=== PATIENT | female | born 1950 | race Caucasian/White ===

== ENCOUNTER 2023-09-26 07:35 | Outpatient (OUT) | payer MEDICARE, OTHER, SELFPAY ==
[2023-09-26 08:15] LABS: Basophils Percent Auto 0.3 % (0.2-2.0); Eosinophils Absolute Auto 0.1 10^3/uL (0.0-0.7); Eosinophils Percent Auto 1.2 % (0.9-7.0); Hematocrit 42.7 % (36.0-48.0); Hemoglobin 14.2 g/dL (12.0-16.0); Immature Granulocytes Abs Auto 0.02 10^3/uL (0.00-0.03); Immature Granulocytes Pct Auto 0.3 % (0.0-0.5); Lymphocytes Absolute Auto 2.5 10^3/uL (1.2-3.8); Lymphocytes Percent Auto 36.8 % (20.5-60.0); Mean Corpuscular HGB Conc 33.3 g/dL (29.9-35.2); Mean Corpuscular Hemoglobin 30.2 pg (26.7-34.0); Mean Corpuscular Volume 90.9 fL (81.0-99.0); Mean Platelet Volume 10.3 fL (9.5-13.5); Monocytes Absolute Auto 0.4 10^3/uL (0.3-0.8); Monocytes Percent Auto 6.4 % (1.7-12.0); Neutrophils Absolute Auto 3.7 10^3/uL (1.4-6.5); Platelet Count 256 10^3/uL (150-450); Red Cell Distribution Width 12.7 % (11.0-15.0); White Blood Count 6.7 10^3/uL (4.0-11.0)
[2023-09-26 09:39] LABS: Free T4 1.17 ng/dL (0.76-1.46)
[2023-09-26 09:41] LABS: Alanine Aminotransferase 26 U/L (14-59); Albumin Globulin Ratio 1.2; Albumin Level 3.8 g/dL (3.4-5.0); Alkaline Phosphatase 63 U/L (46-116); Anion Gap 12.5; Aspartate Amino Transferase 19 U/L (15-37); Bilirubin Total 0.6 mg/dL (0.2-1.0); Calcium 9.6 mg/dL (8.5-10.1); Carbon Dioxide 25.6 mmol/L (21.0-32.0); Chloride 106 mmol/L (98-107); Chol HDL Ratio 2.3; Cholesterol 163 mg/dL (<=200); Estimated GFR (African America >60 (>=60); Estimated GFR (Non-African Ame >60 (>=60); Globulin 3.1 g/dL; Glucose 90 mg/dL (74-106); HDL Cholesterol 71 mg/dL (40-60); Potassium 4.1 mmol/L (3.5-5.1); Sodium 140 mmol/L (136-145); Thyroid Stimulating Hormone 0.258 uIU/mL (0.358-3.740); Total Protein 6.9 g/dL (6.4-8.2); Triglycerides 57 mg/dL (<=150); VLDL CHOLESTEROL 11.4 mg/dL
[2023-09-26 10:18] LABS: BUN Creatinine Ratio 12.8
[2023-09-27 04:08] LABS: Triiodothyronine (T3) 129 ng/dL (71-180)
== END 2023-09-26 07:36 | disposition home or self-care (01) ==
LOC: LAB 07:41
PROVIDERS: PCP Internal Medicine; Visit Provider Internal Medicine
DX: E04.1 Nontoxic single thyroid nodule (principal); I10 Essential (primary) hypertension; E05.90 Thyrotoxicosis, unspecified without thyrotoxic crisis or storm; R19.7 Diarrhea, unspecified; K58.9 Irritable bowel syndrome, unspecified
CPT/HCPCS: 36415; 80053; 80061; 84439; 84443; 84480; 85025

== ENCOUNTER 2024-09-30 11:04 | Outpatient (OUT) | payer MEDICARE, OTHER, SELFPAY ==
--- OUTSIDE RECORDS SUMMARY | 2024-09-30 11:25 | XMS_ITS | CCD ---
Author Organization [facility] Care Team Providers Care Aerodynamic Consultant Name Role Phone Zan Sharma DO Primary Care Provider EDEN, DR WARREN Admitting Unavailable BALL, DR WARREN Attending Unavailable BALL, DR WARREN Primary Care Unavailable BALL, DR WARREN Consulting Unavailable BALL, DR WARREN Admitting Unavailable BALL, DR WARREN Attending Unavailable BALL, DR WARREN Primary Care Unavailable BALL, DR WARREN Consulting Unavailable BALL, DR WARREN Admitting Unavailable BALL, DR WARREN Attending Unavailable BALL, DR WARREN Primary Care Unavailable BALL, DR WARREN Consulting Unavailable BALL, DR WARREN Admitting Unavailable BALL, DR WARREN Attending Unavailable BALL, DR WARREN Primary Care Unavailable BALL, DR WARREN Consulting Unavailable Zan Sharma DO Primary Care Provider Zan Sharma Allergies Allergy Classification Reported Allergen(s) Allergy Type Date of Onset Reaction(s) Facility (7 sources) Codeine Drug Allergy 0 Vomiting [facility] (1 source) Codeine Drug Allergy 0 Unknown [employer] Other (1 source) patient allergy list reviewed by nurse or physicia Propensity to adverse reactions 9 Comment:Done [employer] Other Medications Current Medications Medication Drug Class(es) Dates Sig (Normalized) Sig (Original) amLODIPine 5 mg oral tablet (6 sources) Dihydropyridine Calcium Channel Marcia Start: 10-01-2023 take 1 tablet by mouth once daily Amlodipine Active 0 .ROUTE .COMPLEX 90 October 01, 2023 1:08pm Take 1 tablet by mouth once daily Start: 08-09-2023 End: 10-01-2023 take 5 mg by mouth once daily Amlodipine Discontinued 5 MG PO Daily August 09, 2023 12:00am October 01, 2023 1:08pm take 1 tablet by ericka th every twenty-four hours amLODIPine Besylate 5 MG 1 tablet Orally Once a day for 90 days Active benazepril hydrochloride 20 mg oral tablet (13 sources) Angiotensin Converting Enzyme Inhibitor Start: 10-01-2023 take 1 tablet by mouth once daily Benazepril Active 0 .ROUTE .COMPLEX October 01, 2023 1:08pm Take 1 tablet by mouth once daily Start: 11-19-2018 End: 10-01-2023 take 20 mg by mouth once daily Benazepril Discontinued 20 MG PO Daily August 09, 2023 12:00am October 01, 2023 1:08pm Comment on above: Take 1 tablet by ericka th once daily. Completed/Discontinued Medications Medication Drug Class(es) Dates Sig (Normalized) Sig (Original) calcium carbonate 1500 mg oral tablet (5 sources) Start: 01-25-2010 calcium carbonate(CALCIUM 600 600 MG (1,500 MG) TAB) Take one(1) tablet daily. 0 0 01/25/2010 Active Comment on above: Take one(1) tablet d aily. dicyclomine hydrochloride 10 mg oral capsule (3 sources) Anticholinergic Start: 02-01-2022 take 1 capsule by mouth three times daily as needed Dicyclomine HCl 10 MG 1 CAPSULE Orally Three times a day NEEDED for 30 day(s) Jan, Not-Taking LORazepam 0.5 mg oral tablet (9 sources) Benzodiazepine Start: 08-09-2023 End: 08-09-2023 take 0.5-1 tablets by mouth every eight hours as needed for anxiety Lorazepam Discontinued 0.5 MG PO Every 8 hours August 09, 2023 12:31pm August 09, 2023 3:51pm 1/2 - 1 tablet Orally every 8 hours as needed for anxiety Start: 08-16-2022 take 0.5-1 tablets b y mouth every eight hours as needed for anxiety LORazepam 0.5 MG 1/2 - 1 tablet Orally every 8 hours as needed for anxiety for 30 days Jul, Active multivitamins(MULTIPLE VITAMIN TAB) (5 sources) Start: 01-25-2010 multivitamins(MULTIPLE VITAMIN TAB) Take one(1) tablet daily. 0 0 01/25/2010 Active Comment on above: Take one(1) tablet d aily. Problems Active Problems Problem Classification Problem Date Documented Da te Episodic/Chronic Anxiety disorders (7 sources) Generalized anxiety disorder; Translations: [Generalized anxiety disorder] Chronic Essential hypertension (13 sources) Essential hypertension; Translations: [Essential (primary) hypertension] Onset: 11-19-2018 11-19-2018 Chronic Immunizations and screening for infectious disease (1 source) Vaccination given; Translations: [Encounter for immunization] Episodic Menopausal disorders (1 source) Primary ovarian failure; Translations: [Other primary ovarian failure] Onset: 12-11-2018 Chronic Miscellaneous mental health disorders (3 sources) Primary insomnia; Translations: [Primary insomnia] 09-25-2023 Chronic Other aftercare (2 sources) H/O: high risk medication; Translations: [Other correction (current) drug therapy] Episodic Other aftercare (1 source) Long-term current use of drug therapy; Translations: [Other watermaster (current) drug therapy] Episodic Other and unspecified benign neoplasm (2 sources) History of polyp of colon; Translations: [Personal history of colonic polyps] 05-02-2023 Episodic Other connective tissue disease (5 sources) History of repair of hip joint; Translations: [Presence of left artificial hip joint] Onset: 11-19-2018 11-19-2018 Chronic Other gastrointestinal disorders (2 sources) Irritable bowel syndrome; Translations: [Irritable bowel syndrome without diarrhea] 09-25-2023 Chronic Other gastrointestinal disorders (1 source) Irritable bowel syndrome without diarrhea; Translations: [Irritable bowel syndrome] 09-25-2023 Chronic Other gastrointestinal disorders (1 source) Diarrhea; Translations: [Diarrhea, unspecified] Episodic Other hereditary and degenerative nervous system conditions (5 sources) Restless legs; Translations: [Restless legs syndrome] Onset: 11-19-2018 11-19-2018 Chronic Other injuries and conditions due to external causes (1 source) History of fall; Translations: [History of falling] Episodic Other screening for suspected conditions (not mental disorders or infectious disease) (3 sources) Blood chemistry abnormal; Translations: [Other abnormal blood chemistry] Onset: 12-11-2018 05-02-2023 Episodic Prolapse of female genital organs (2 sources) Herniation of rectum into vagina; Translations: [Rectocele without mention of uterine prolapse] Onset: 07-18-2009 Chronic Residual codes; unclassified (1 source) Asymptomatic menopausal state Episodic Residual codes; unclassified (2 sources) Procedure and treatment not carried out because of patient's decision for unspecified reasons; Translations: [Surgical or other procedure not carried out because of patient's decision] Episodic Residual codes; unclassified (2 sources) Mammogram declined; Translations: [Procedure and treatment not carried out because of patient's decision for unspecified reasons] 09-25-2023 Episodic Residual codes; unclassified (2 sources) Family history of cancer of colon; Translations: [Family history of malignant neoplasm of digestive organs] 05-02-2023 Episodic Thyroid disorders (20 sources) Multinodular goiter; Translations: [Nontoxic multinodular goiter] Onset: 11-21-2018 11-21-2018 Chronic Past or Other Problems Problem Classification Problem Date Documented Da te Episodic/Chronic Gastrointestinal hemorrhage (1 source) Melena; Translations: [Melena] Onset: 12-11-2018 Episodic Genitourinary symptoms and ill-defined conditions (1 source) Finding of frequency of urination; Translations: [Frequency of micturition] Onset: 02-22-2017 Episodic Other aftercare (1 source) Surgical follow-up; Translations: [Surgery follow-up examination] Onset: 10-07-2009 Episodic Other gastrointestinal disorders (4 sources) Diarrhea, unspecified; Translations: [DIARRHEA UNSPECIFIED] Onset: 01-21-2022 Episodic Other injuries and conditions due to external causes (5 sources) H/O: hip fracture; Translations: [Personal history of (healed) traumatic fracture] Onset: 11-19-2018 11-19-2018 Episodic Results Test Name Value Interpretation Reference Range Facility T3, TOTAL (TRIIODOTHYRONINE) on 09-28-2022 T3, TOTAL 145 ng/dL Normal 71-180 [facility] Comment on above: Performed By: #### T 3TOTAL #### [facility] [address] [address] [address] Ralph Harry CBC AUTO DIFFon 09-27-2022 BASO # 0.0 103/ul Normal 0.0-0.1 [facility] Comment on above: Performed By: #### C BC #### [facility] [address] [address] [address] Ralph Harry Basophils/100 WBC (Bld) 0.3 % Normal 0.2-2.0 [facility] Comment on above: Performed By: #### C BC #### [facility] [address] [place] [address] Dr. Ralph Harry EO # 0.0 103/ul Normal 0.0-0.7 [facility] Comment on above: Performed By: #### C BC #### [facility] [address] [place] [address] Dr. Ralph Harry Eosinophils/100 WBC (Bld) 0.5 % Critically low 0.9-7.0 [facility] Comment on above: Performed By: #### C BC #### [facility] [address] [place] [address] Dr. Ralph Harry Erythrocyte distribution width (RBC) [Ratio] 12.6 % Normal 11.0-15.0 [facility] Comment on above: Performed By: #### C BC #### [facility] [address] [place] [address] Dr. Ralph Hrary Hematocrit (Bld) [Volume fraction] 45.8 % Normal 36.0-48.0 [facility] Comment on above: Performed By: #### C BC #### [facility] [address] [place] [address] Dr. Ralph Harry Hemoglobin (Bld) [Mass/Vol] 15.2 g/dL Normal 12.0-16.0 [facility] Comment on above: Performed By: #### C BC #### [facility] [address] [place] [address] Dr. Ralph Harry IG # 0.02 10e3/ul Normal 0.00-0.03 [facility] Comment on above: Performed By: #### C BC #### [facility] [address] [place] [address] Dr. Ralph Harry IG % 0.3 % Normal 0.0-0.5 [facility] Comment on above: Performed By: #### C BC #### [facility] [address] [place] [address] Dr. Ralph Harry LYMPH # 2.6 103/ul Normal 1.2-3.8 [facility] Comment on above: Performed By: #### C BC #### [facility] [address] [place] [address] Dr. Ralph Harry Lymphocytes/100 WBC (Bld) 33.0 % Normal 20.5-60.0 [facility] Comment on above: Performed By: #### C BC #### [facility] [address] [place] [address] Dr. Ralph Harry MANUAL DIFF REQ NO Normal [facility] Comment on above: Performed By: #### C BC #### [facility] [address] [place] [address] Dr. Ralph Harry MCH (RBC) [Entitic mass] 30.5 pg Normal 26.7-34.0 [facility] Comment on above: Performed By: #### C BC #### [facility] [address] [place] [address] Dr. Ralph Harry MCHC (RBC) [Mass/Vol] 33.2 g/dL Normal 29.9-35.2 [facility] Comment on above: Performed By: #### C BC #### [facility] [address] [place] [address] Dr. Ralph Harry MCV (RBC) [Entitic vol] 91.8 fL Normal 81.0-99.0 [facility] Comment on above: Performed By: #### C BC #### [facility] [address] [place] [address] Dr. Ralph Harry MONO # 0.5 103/ul Normal 0.3-0.8 [facility] Comment on above: Performed By: #### C BC #### [facility] [address] [place] [address] Dr. Ralph Harry Monocytes/100 WBC (Bld) 6.4 % Normal 1.7-12.0 [facility] Comment on above: Performed By: #### C BC #### [facility] [address] [place] [address] Dr. Ralph Harry NEUT # 4.7 103/ul Normal 1.4-6.5 [facility] Comment on above: Performed By: #### C BC #### [facility] [address] [place] [address] Dr. Ralph Harry Neutrophils/100 WBC (Bld) 59.5 % Normal 43.0-75.0 [facility] Comment on above: Performed By: #### C BC #### [facility] [address] [place] [address] Dr. Ralph Harry Platelet mean volume (Bld) [Entitic vol] 10.0 fL Normal 9.5-13.5 [facility] Comment on above: Performed By: #### C BC #### [facility] [address] [place] [address] Dr. Ralph Harry PLT 279 103/ul Normal 150-450 [facility] Comment on above: Performed By: #### C BC #### [facility] [address] [place] [address] Dr. Ralph Harry RBC 4.99 106/ul Normal 4.20-5.40 [facility] Comment on above: Performed By: #### C BC #### [facility] [address] [place] [address] Dr. Ralph Harry WBC 7.8 103/ul Normal 4.0-11.0 [facility] Comment on above: Performed By: #### C BC #### [facility] [address] [place] [address] Dr. Ralph Harry FREE T4on 09-27-2022 Free T4 [Mass/Vol] 1.16 ng/dL Normal 0.76-1.46 [facility] Comment on above: Performed By: #### F T4 #### [facility] [address] [place] [address] Dr. Ralph Harry PROF CHEM 8 (BAS METB)on Anion gap [Moles/Vol] 11.9 mmol/L Normal [facility] Comment on above: Performed By: #### T SH, BMP #### [facility] [address] [place] [address] Dr. Ralph Harry Calcium [Mass/Vol] 9.7 mg/dL Normal 8.5-10.1 [facility] Comment on above: Performed By: #### T SH, BMP #### [facility] [address] [address] [address] Ralph Harry Chloride [Moles/Vol] 105 mmol/L Normal 98-107 [facility] Comment on above: Performed By: #### T SH, BMP #### [facility] [address] [address] [address] Ralph Harry CO2 [Moles/Vol] 27.4 mmol/L Normal 21.0-32.0 [facility] Comment on above: Performed By: #### T SH, BMP #### [facility] [address] [address] [address] Ralph Harry Creatinine [Mass/Vol] 0.74 mg/dL Normal 0.55-1.02 [facility] Comment on above: Performed By: #### T SH, BMP #### [facility] [address] [address] [address] Ralph Harry EGFR-AF BAHAMIAN >60 Normal >=60 [facility] Comment on above: Performed By: #### T SH, BMP #### [facility] [address] [address] [address] Ralph Harry EGFR-NON AF BAHAMIAN >60 Normal >=60 [facility] Comment on above: Performed By: #### T SH, BMP #### [facility] [address] [address] [address] Ralph Harry Glucose [Mass/Vol] 102 mg/dL Normal 74-106 [facility] Comment on above: Performed By: #### T SH, BMP #### [facility] [address] [address] [address] Ralph Harry Potassium [Moles/Vol] 4.3 mmol/L Normal 3.5-5.1 [facility] Comment on above: Performed By: #### T SH, BMP #### [facility] [address] [address] [address] Ralph Harry Sodium [Moles/Vol] 140 mmol/L Normal 136-145 [facility] Comment on above: Performed By: #### T SH, BMP #### [facility] [address] [place] [address] Dr. Ralph Harry Urea nitrogen [Mass/Vol] 15.0 mg/dL Normal 7.0-18.0 [facility] Comment on above: Performed By: #### T SH, BMP #### [facility] [address] [place] [address] Dr. Ralph Harry Urea nitrogen/Creatinine [Mass ratio] 20.3 mg/mg Normal [facility] Comment on above: Performed By: #### T SH, BMP #### [facility] [address] [place] [address] Dr. Ralph Harry TSHon 09-27-2022 TSH 0.169 uIU/mL Critically low 0.358-3.740 [facility] Comment on above: Performed By: #### T SH, BMP #### [facility] [address] [place] [address] Dr. Ralph Harry GI PANEL (PCR)on 01-21-2022 Adenovirus F 40/41 Not detected Normal NOT DETECTED [facility] Comment on above: Performed By: #### G IPANEL #### [facility] [address] [place] [address] Dr. Ralph Harry Astrovirus Not detected Normal NOT DETECTED [facility] Comment on above: Performed By: #### G IPANEL #### [facility] [address] [place] [address] Dr. Ralph Harry C. Diff toxin A/B Not detected Normal NOT DETECTED [facility] Comment on above: Performed By: #### G IPANEL #### [facility] [address] [place] [address] Dr. Ralph Harry Campylobacter Not detected Normal NOT DETECTED [facility] Comment on above: Performed By: #### G IPANEL #### [facility] [address] [place] [address] Dr. Ralph Harry Cryptosporidium Not detected Normal NOT DETECTED [facility] Comment on above: Performed By: #### G IPANEL #### [facility] [address] [place] [address] Dr. Ralph Harry Cyclos. Cayetanensis Not detected Normal NOT DETECTED [facility] Comment on above: Performed By: #### G IPANEL #### [facility] [address] [place] [address] Dr. Ralph Harry E. Coli O157 Not Applicable Normal Not Applicable [facility] Comment on above: Performed By: #### G IPANEL #### [facility] [address] [place] [address] Dr. Ralph Harry E. histolytica Not detected Normal NOT DETECTED [facility] Comment on above: Performed By: #### G IPANEL #### [facility] [address] [place] [address] Dr. Ralph Harry EAEC Not detected Normal NOT DETECTED [facility] Comment on above: Performed By: #### G IPANEL #### [facility] [address] [place] [address] Dr. Ralph Harry EIEC Not detected Normal NOT DETECTED [facility] Comment on above: Performed By: #### G IPANEL #### [facility] [address] [place] [address] Dr. Ralph Harry EPEC Not detected Normal NOT DETECTED [facility] Comment on above: Performed By: #### G IPANEL #### [facility] [address] [place] [address] Dr. Ralph Harry ETEC Not detected Normal NOT DETECTED [facility] Comment on above: Performed By: #### G IPANEL #### [facility] [address] [place] [address] Dr. Ralph Harry G. Lamblia Not detected Normal NOT DETECTED [facility] Comment on above: Performed By: #### G IPANEL #### [facility] [address] [place] [address] Dr. Ralph GARCIAL CONTROLS PASSED Normal [facility] Comment on above: Performed By: #### G IPANEL #### [facility] [address] [place] [address] Dr. Ralph LAWRENCENL JUNIE HEADER GI PANEL BACTERIA Normal T [facility] Comment on above: Performed By: #### G IPANEL #### [facility] [address] [address] [address] Ralph BERMAN ECOLI GI PANEL DIARRHEAGEN IC E.COLI / SHIGELLA Normal [facility] Comment on above: Performed By: #### G IPANEL #### [facility] [address] [address] [address] Ralph BERMAN INFO SEE BELOW Normal [facility] Comment on above: Result Comment: EAEC - Enteroaggregative E. Coli EPEC- Enteropathogenic E. Coli ETEC- Enterotoxigenic E. Coli lt/st STEC- Shigella-like toxin-producing E. Coli stx1/stx2 EIEC- Shigella/Enteroinvasive E. Coli Performed By: #### G IPANEL #### [facility] [address] [place] [address] Dr. Ralph BERMAN PARASITES GI PANEL PARASITES Normal [facility] Comment on above: Performed By: #### G IPANEL #### [facility] [address] [place] [address] Dr. Ralph BERMAN VIRUS GI PANEL VIRUSES Normal [facility] Comment on above: Performed By: #### G IPANEL #### [facility] [address] [address] [address] Ralph Harry Norovirus GI/GII Not detected Normal NOT DETECTED [facility] Comment on above: Performed By: #### G IPANEL #### [facility] [address] [address] [address] Ralph Harry P. Shigelloides Not detected Normal NOT DETECTED [facility] Comment on above: Performed By: #### G IPANEL #### [facility] [address] [address] [address] Ralph Harry Rotavirus A Not detected Normal NOT DETECTED [facility] Comment on above: Performed By: #### G IPANEL #### [facility] [address] [place] [address] Dr. Ralph Harry Salmonella Not detected Normal NOT DETECTED [facility] Comment on above: Performed By: #### G IPANEL #### [facility] [address] [place] [address] Dr. Ralph Harry Sapovirus Not detected Normal NOT DETECTED [facility] Comment on above: Performed By: #### G IPANEL #### [facility] [address] [place] [address] Dr. Ralph Harry STEC Not detected Normal NOT DETECTED [facility] Comment on above: Performed By: #### G IPANEL #### [facility] [address] [place] [address] Dr. Ralph Harry Vibrio Not detected Normal NOT DETECTED [facility] Comment on above: Performed By: #### G IPANEL #### [facility] [address] [place] [address] Dr. Ralhp Harry Vibrio Cholera Not detected Normal NOT DETECTED [facility] Comment on above: Performed By: #### G IPANEL #### [facility] [address] [place] [address] Dr. Ralph Harry Y. Enterocolitica Not detected Normal NOT DETECTED [facility] Comment on above: Performed By: #### G IPANEL #### [facility] [address] [place] [address] Dr. Ralph Harry STOOL CULTUREon 01-20-2022 Campylobacter Culture NSTCUL [facility] Comment on above: Result Comment: Test not performed. No stool culture transport device received. Performed By: #### C XSTOOL #### [facility] [address] [place] [address] Dr. Ralph Harry E coli Shiga Toxin EIA NSTCUL Normal [facility] Comment on above: Result Comment: Test not performed. No stool culture transport device received. Performed By: #### C XSTOOL #### [facility] [address] [place] [address] Dr. Ralph Harry Salmonella/Shigella Screen NSTCUL [facility] Comment on above: Result Comment: Test not performed. No stool culture transport device received. Performed By: #### C XSTOOL #### [facility] [address] [place] [address] Dr. Ralph Harry CBC AUTO DIFFon 01-18-2022 BASO # 0.0 103/ul Normal 0.0-0.1 [facility] Comment on above: Performed By: #### C BC #### [facility] [address] [place] [address] Dr. Ralph Harry Basophils/100 WBC (Bld) 0.1 % Critically low 0.2-2.0 [facility] Comment on above: Performed By: #### C BC #### [facility] Laboratory [address] [place] [address] Dr. Ralph Harry EO # 0.0 103/ul Normal 0.0-0.7 [facility] Comment on above: Performed By: #### C BC #### [facility] Laboratory [address] [place] [address] Dr. Ralph Harry Eosinophils/100 WBC (Bld) 0.3 % Critically low 0.9-7.0 [facility] Comment on above: Performed By: #### C BC #### [facility] Laboratory [address] [place] [address] Dr. Ralph Harry Erythrocyte distribution width (RBC) [Ratio] 12.7 % Normal 11.0-15.0 [facility] Comment on above: Performed By: #### C BC #### [facility] [address] [place] [address] Dr. Ralph Harry Hematocrit (Bld) [Volume fraction] 45.8 % Normal 36.0-48.0 [facility] Comment on above: Performed By: #### C BC #### [facility] [address] [place] [address] Dr. Ralph Harry Hemoglobin (Bld) [Mass/Vol] 15.3 g/dL Normal 12.0-16.0 [facility] Comment on above: Performed By: #### C BC #### [facility] [address] [place] [address] Dr. Ralph Harry IG # 0.03 10e3/ul Normal 0.00-0.03 [facility] Comment on above: Performed By: #### C BC #### [facility] [address] [place] [address] Dr. Ralph Harry IG % 0.3 % Normal 0.0-0.5 [facility] Comment on above: Performed By: #### C BC #### [facility] [address] [place] [address] Dr. Ralph Harry LYMPH # 2.7 103/ul Normal 1.2-3.8 [facility] Comment on above: Performed By: #### C BC #### [facility] [address] [place] [address] Dr. Ralph Harry Lymphocytes/100 WBC (Bld) 28.8 % Normal 20.5-60.0 [facility] Comment on above: Performed By: #### C BC #### [facility] [address] [place] [address] Dr. Ralph Harry MANUAL DIFF REQ NO Normal [facility] Comment on above: Performed By: #### C BC #### [facility] [address] [place] [address] Dr. Ralph Harry MCH (RBC) [Entitic mass] 30.1 pg Normal 26.7-34.0 [facility] Comment on above: Performed By: #### C BC #### [facility] [address] [place] [address] Dr. Ralph Harry MCHC (RBC) [Mass/Vol] 33.4 g/dL Normal 29.9-35.2 [facility] Comment on above: Performed By: #### C BC #### [facility] [address] [place] [address] Dr. Ralph Harry MCV (RBC) [Entitic vol] 90.0 fL Normal 81.0-99.0 [facility] Comment on above: Performed By: #### C BC #### [facility] [address] [place] [address] Dr. Ralph Harry MONO # 0.5 103/ul Normal 0.3-0.8 [facility] Comment on above: Performed By: #### C BC #### [facility] [address] [place] [address] Dr. Ralph Harry Monocytes/100 WBC (Bld) 5.6 % Normal 1.7-12.0 [facility] Comment on above: Performed By: #### C BC #### [facility] [address] [place] [address] Dr. Ralph Harry NEUT # 6.1 103/ul Normal 1.4-6.5 [facility] Comment on above: Performed By: #### C BC #### [facility] [address] [place] [address] Dr. Ralph Harry Neutrophils/100 WBC (Bld) 64.9 % Normal 43.0-75.0 [facility] Comment on above: Performed By: #### C BC #### [facility] [address] [place] [address] Dr. Ralph Harry Platelet mean volume (Bld) [Entitic vol] 9.8 fL Normal 9.5-13.5 [facility] Comment on above: Performed By: #### C BC #### [facility] [address] [place] [address] Dr. Ralph Harry PLT 311 103/ul Normal 150-450 [facility] Comment on above: Performed By: #### C BC #### [facility] [address] [place] [address] Dr. Ralph Harry RBC 5.09 106/ul Normal 4.20-5.40 [facility] Comment on above: Performed By: #### C BC #### [facility] [address] [place] [address] Dr. Ralph Harry WBC 9.3 103/ul Normal 4.0-11.0 [facility] Comment on above: Performed By: #### C BC #### [facility] [address] [place] [address] Dr. Ralph Harry PROF 14(COMP METB)on 022 Albumin [Mass/Vol] 4.4 g/dL Normal 3.4-5.0 [facility] Comment on above: Performed By: #### C MP #### [facility] [address] [place] [address] Dr. Ralph Harry Albumin/Globulin [Mass ratio] 1.4 {ratio} Normal [facility] Comment on above: Performed By: #### C MP #### [facility] [address] [address] [address] Ralph Harry ALP [Catalytic activity/Vol] 68 U/L Normal 46-116 [facility] Comment on above: Performed By: #### C MP #### [facility] [address] [address] [address] Ralph Harry ALT [Catalytic activity/Vol] 25 U/L Normal 14-59 [facility] Comment on above: Performed By: #### C MP #### [facility] [address] [place] [address] Dr. Ralph Harry Anion gap [Moles/Vol] 14.2 mmol/L Normal [facility] Comment on above: Performed By: #### C MP #### [facility] [address] [place] [address] Dr. Ralph Harry AST [Catalytic activity/Vol] 23 U/L Normal 15-37 [facility] Comment on above: Performed By: #### C MP #### [facility] [address] [place] [address] Dr. Ralph Harry Bilirubin [Mass/Vol] 0.7 mg/dL Normal 0.2-1.0 [facility] Comment on above: Performed By: #### C MP #### [facility] [address] [place] [address] Dr. Ralph Harry Calcium [Mass/Vol] 10.1 mg/dL Normal 8.5-10.1 [facility] Comment on above: Performed By: #### C MP #### [facility] [address] [place] [address] Dr. Ralph Harry Chloride [Moles/Vol] 102 mmol/L Normal 98-107 [facility] Comment on above: Performed By: #### C MP #### [facility] [address] [place] [address] Dr. Ralph Harry CO2 [Moles/Vol] 26.8 mmol/L Normal 21.0-32.0 [facility] Comment on above: Performed By: #### C MP #### [facility] [address] [address] [address] Ralph Harry Creatinine [Mass/Vol] 0.87 mg/dL Normal 0.55-1.02 [facility] Comment on above: Performed By: #### C MP #### [facility] [address] [address] [address] Ralph Harry EGFR-AF BAHAMIAN >60 Normal >=60 [facility] Comment on above: Performed By: #### C MP #### [facility] [address] [address] [address] Ralph Harry EGFR-NON AF BAHAMIAN >60 Normal >=60 [facility] Comment on above: Performed By: #### C MP #### [facility] [address] [place] [address] Dr. Ralph Harry Globulin (S) [Mass/Vol] 3.2 g/dL Normal [facility] Comment on above: Performed By: #### C MP #### [facility] [address] [place] [address] Dr. Ralph Harry Glucose [Mass/Vol] 146 mg/dL Critically high 74-106 [facility] Comment on above: Performed By: #### C MP #### [facility] [address] [place] [address] Dr. Ralph Harry Potassium [Moles/Vol] 4.0 mmol/L Normal 3.5-5.1 [facility] Comment on above: Performed By: #### C MP #### [facility] [address] [address] [address] Ralph Harry Protein [Mass/Vol] 7.6 g/dL Normal 6.4-8.2 [facility] Comment on above: Performed By: #### C MP #### [facility] [address] [place] [address] Dr. Ralph Harry Sodium [Moles/Vol] 139 mmol/L Normal 136-145 [facility] Comment on above: Performed By: #### C MP #### [facility] [address] [place] [address] Dr. Ralph Harry Urea nitrogen [Mass/Vol] 10.0 mg/dL Normal 7.0-18.0 [facility] Comment on above: Performed By: #### C MP #### [facility] [address], [place] [address] Dr. Ralph Harry Urea nitrogen/Creatinine [Mass ratio] 11.5 mg/mg Normal [facility] Comment on above: Performed By: #### C MP #### [facility] [address], [place] [address] Dr. Ralph Harry US THYROID/PARATHYROIDon US THYROID/PARATHYROID * * *Final Report* * * DATE OF EXAM: Nov 08 2021 1:23PM [facility] 1048 - US THYROID/PARATHYROID / PROCEDURE REASON: Multiple thyroid nodules * * * * Physician Interpretation * * * * EXAMINATION: THYROID ULTRASOUND CLINICAL HISTORY: Multiple thyroid nodules TECHNIQUE: Sonography and Doppler imaging of the thyroid was performed. Images were obtained and stored in a permanent archive. MQ: UST_1 COMPARISON: 01/22/2020 RESULT: Right Lobe: 6.9 x 2.3 x 2.9 cm; homogeneous echogenicity, with multiple thyroid nodules. expected vascular flow. Left Lobe: 4.9 x 1.5 x 1.8 cm; homogeneous echogenicity, with multiple thyroid nodules. expected vascular flow. Isthmus: 0.4 cm The most suspicious thyroid nodule(s) (up to four) as below: NODULE 1: Location: Right upper pole Size: 1.3 cm Characteristics: Composition: Solid or almost completely solid, 2 points Echogenicity: Hypoechoic, 2 points Shape: Slvzl-myyv-myzd, 0 points Margin: Smooth, 0 points Echogenic foci (add points for all that apply): None, 0 points Internal vascularity: present Interval growth: Stable TI-RADS Category: TR4 ACR Recommendation: TI-RADS 4 nodule. Follow up imaging in 1, 2, 3 and 5 years is advised. NODULE 2: Location: Right mid Size: 1.6 cm Characteristics: Composition: Solid or almost completely solid, 2 points Echogenicity: Hypoechoic, 2 points Shape: Tibnw-yuxe-fssr, 0 points Margin: Smooth, 0 points Echogenic foci (add points for all that apply): Punctate echogenic foci, 3 points Internal vascularity: present Interval growth: Stable TI-RADS Category: TR5 ACR Recommendation: TI-RADS 5 nodule. FNA is advised. NODULE 3: Location: Right lower pole Size: 2.4 cm Characteristics: Composition: Mixed cystic and solid, 1 point Echogenicity: Hypoechoic, 2 points Shape: Mmkpv-eqra-uslm, 0 points Margin: Smooth, 0 points Echogenic foci (add points for all that apply): None, 0 points Internal vascularity: present Interval growth: Stable TI-RADS Category: TR3 ACR Recommendation: TI-RADS 3 nodule. Follow-up imaging at 1, 3 and 5 years is recommended. NODULE 4: Location: Left lower pole Size: 1.7 cm Characteristics: Composition: Solid or almost completely solid, 2 points Echogenicity: Hypoechoic, 2 points Shape: Nzaki-oalo-anbs, 0 points Margin: Smooth, 0 points Echogenic foci (add points for all that apply): Punctate echogenic foci, 3 points Internal vascularity: present Interval growth: Stable TI-RADS Category: TR5 ACR Recommendation: TI-RADS 5 nodule. FNA is advised. IMPRESSION: Unchanged multiple thyroid nodules. Mixing Machine Operator: SHELDON Transcribe Date/Time: Nov 09 2021 8:02A Dictated by : PHILLY NICHOLS MD This examination was interpreted and the report reviewed and electronically signed by: PHILLY NICHOLS MD on Nov 09 2021 8:07AM EST [id number] Normal [facility] 11-02-2021 CNPN Telephone (ENDTWN) CHRISTINE LANDIS ([id number]) 1950 F Date Time Provider Department 11/02/21 IAIN HENRY During your visit today, we recorded the following information about you: Iain Henry MD 11/02/2021 8:28 AM Signed Christine sent me an e-mail asking about the need for follow up of her thyroid issues. Please let her know that I am no longer able to communicate this way. She shared her recent thyroid function studies, which are stable compared to previous levels. So long as she feels well (not experiencing hyperthyroid symptoms - such as heat intolerance, heart palpitations, unexplained weight loss, anxiety, tremor, insomnia, frequent and/or loose bowel movements - then no specific intervention is needed in this regard). She also has multiple thyroid nodules. Her last ultrasound was Jan 2020. I recommend that she have an updated surveillance ultrasound now. Order placed. Please help her to schedule. Reach out via [email or web address] once this is done so we can decide how to proceed. Thanks, Iain Henry MD Endocrinology, Diabetes, AND Metabolism November 02, 2021 8:26 AM Jose Cruz Cabrera RN 11/02/2021 4:15 PM Signed Relayed message below. Guard Rail Installer please assist with thyroid US close to patients home. Thank you Brooke Mills 11/04/2021 12:23 PM Signed US Thyroid/parathyroid scheduled 11/08/2021. Patient made aware that communication with Dr Henry should be through My Chart so it is part of her medical record. Expressed understanding and will await results of US once available. Iain Henry MD 11/11/2021 3:25 PM Signed Fortunately, none of her thyroid nodules grew or changed significantly since the prior ultrasound was done (Jan 2020). I recommend that she have another study done in another ~2 years as such. Thanks, Iain Henry MD Endocrinology, Diabetes, AND Metabolism November 11, 2021 3:25 PM Jose Cruz Cabrera RN 11/14/2021 11:55 AM Signed Called and gave patient the messaage below. Canceled her follo wup to discuss US per patients request. Aware to get US in 2 years. Allergies As of Date: 11/02/2021 Noted Allergy Reaction CODEINE 01/25/2010 11 - Vomiting Comments: nausea Date Reviewed: 12/12/2018 Reviewed by: Shirley Deshpande (Rt) - Fully Assessed Reason for Visit: Follow up planning [Other] Primary Visit Diagnosis:Multiple thyroid nodules [E04.2] Order(s):US THYROID/PARATHYROID [[id number]] Order #: [id number] FUTURE Prescriptions as of 11/14/2021 - benazepril (LOTENSIN) 20 mg tablet Take 1 tablet by mouth once daily. - multivitamins(MULTIPLE VITAMIN TAB) Take one(1) tablet daily. - calcium carbonate(CALCIUM 600 600 MG (1,500 MG) TAB) Take one(1) tablet daily. 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 TECHNIQUE: 354.7 microcuries of I-123 sodium orally uptake and neck images in anterior-posterior and oblique views obtained at about 24 hours RESULT: The I-123 uptake is 38.8% at 24 hours ( normal 10-30% at 24 hours). There is heterogeneous uptake seen in both lobes of the thyroid. Focal area of increased uptake in the right lower pole, and smaller areas of relatively increased uptake in the right upper pole and left lower pole. Findings are suggestive toxic multinodular goiter in the setting of hyperthyroidism. The most dominant hyperfunctioning ( hot) area is in the right lower pole. IMPRESSION: 1. INCREASED I-123 UPTAKE VALUE. 2. SCAN: HETEROGENEOUS UPTAKE WITH FOCAL AREAS OF INCREASED UPTAKE DESCRIBED. IN THE SETTING OF HYPERTHYROIDISM THESE SCAN FINDINGS ARE SUGGESTIVE TOXIC MULTINODULAR GOITER. THE MOST DOMINANT HYPERFUNCTIONING (HOT) FOCUS IS IN THE RIGHT LOWER POLE. Mixing Machine Operator: PSCB Transcribe Date/Time: Dec 13 2018 12:12P Dictated by : ESPERANZA RODRIGUES MD This examination was interpreted and the report reviewed and electronically signed by: ESPERANZA RODRIGUES MD on Dec 13 2018 12:18PM EST [id number] [facility] PROGRESSon 12-12-2018 PROGRESS HNO ID: [id number] Author: Mildred Olson Service: Radiology Author Type: Metal Model Maker Type: Progress Notes Filed: 12/12/2018 11:46 AM Note Text: Radiology Service Progress Note PATIENT NAME: Christine Landis DATE OF SERVICE: December 12, 2018 TIME: 11:46 AM PATIENT IDENTITY VERIFICATION COMPLETED USING TWO (2) METHODS: Patient confirmed name verbally and Date of . PATIENT GENDER DATA: Female. status: : No status: NO. PATIENT RELEVANT IMPLANT DATA REVIEWED: Not Applicable RADIOLOGY DEPARTMENT: Ultrasound PERIPHERAL IV DATA: Not applicable Thyroid US done SIGNED BY: Mildred Olson, MARJORIE, RVT December 12, 2018 11:46 AM [facility] PROGRESS HNO ID: [id number] Author: Shirley Deshpande (Rt) Service: Radiology Author Type: Wool Washing Machine Operator Type: Progress Notes Filed: 12/12/2018 10:11 AM Note Text: RADIOLOGY SERVICE PROGRESS NOTE SERVICE DATE: 12/12/2018 SERVICE TIME: 10:10 AM PATIENT IDENTITY VERIFICATION COMPLETED USING TWO (2) METHODS: Patient confirmed name and Date of verbally. PATIENT GENDER DATA: .female : No status: No ALLERGIES: Reviewed and unchanged MEDICATIONS REVIEWED: Yes PATIENT RELEVANT IMPLANT DATA REVIEWED: Not Applicable CREATININE: Creatinine Date Value Ref Range Status 03/29/2010 0.65 (L) 0.70 - 1.40 mg/dL Final 03/28/2010 0.77 0.70 - 1.40 mg/dL Final eGFR-All Other Races Date Value Ref Range Status 03/29/2010 >60 . Final Comment: eGFR (Estimated GFR) Units of measure: mL/min/1.73 meters squared eGFR is derived from the reexpressed MDRD Study equation using the following parameters: serum creatinine, age, gender and race. The creatinine assay has been calibrated to be traceable to IDMS. An eGFR <60 mL/min/1.73m2 for >3 months is consistent with chronic kidney disease. Refer to KDOQI guidelines for clinical interpretation. eGFR- Date Value Ref Range Status 03/29/2010 >60 Final P.O.C.T. RESULTS: N/A December 12, [address] PERFORMED: No IV SITE: NM only - not applicable, oral or physician administered agents given to patient POST EXAM PIV STATUS: Not applicable PROCEDURE TYPE: NM I-123 24 hour only scan and uptake (tomorrow): 354.7 microcurries of Nal 123 capsules was administered orally at today. ADMINISTRATION TIME: 10:04 PATIENT DISCHARGED TO: Ambulatory patient, left OR department area. A Diagnostic radioactive procedure has taken place, with no further precautions necessary other than routine body substance precautions. More information regarding radiation safety can be found using this link: [email or web address] SIGNATURE: RT Charlee (N0, TURFGRASS MANAGEMENT PROFESSOR PATIENT NAME: Christine Landis DATE: December 12, 2018 TIME: 10:10 AM PAGER/CONTACT #: [facility] US THYROID/PARATHYROIDon US THYROID/PARATHYROID * * *Final Report* * * DATE OF EXAM: Dec 12 2018 12:30PM [facility] 1048 - US THYROID/PARATHYROID / PROCEDURE REASON: multiple diagnoses * * * * Physician Interpretation * * * * EXAMINATION: THYROID ULTRASOUND HISTORY: Subclinical hyperthyroidism with multiple thyroid nodules TECHNIQUE: Sonography and Doppler imaging of the thyroid was performed. Images were obtained and stored in a permanent archive. COMPARISON: None. RESULT: RIGHT LOBE: 6.6 x 2.1 x 2.7 cm; homogeneous echogenicity, expected vascular flow LEFT LOBE: 5.4 x 1.5 x 1.7 cm; homogeneous echogenicity, expected vascular flow ISTHMUS: 0.4 cm Nodules: The most suspicious thyroid nodules (up to 4) are detailed below: NODULE 1 Location: Right upper pole Size: 1.3x 0.7x 0.9 cm Characteristics: Composition: Solid or almost completely solid, 2 points Echogenicity: Hypoechoic, 2 points Shape: Oeljv-aasi-mvbz, 0 points Margin: Smooth, 0 points Echogenic foci (Add points for all that apply): Punctate echogenic foci, 3 points Internal vascularity: present Interval growth:No prior available for comparison Total points / TI-RADS Category: 7 TI-RADS 5 ACR Recommendation: TI-RADS 5 NODULE, FNA is advised. NODULE 2 Location: Right mid Size: 1.6x 0.8x 1.1 cm Characteristics: Composition: Mixed cystic and solid, 1 point Echogenicity: Hypoechoic, 2 points Shape: Wwvmb-epce-ewet, 0 points Margin: Smooth, 0 points Echogenic foci (Add points for all that apply): Punctate echogenic foci, 3 points Internal vascularity: present Interval growth:No prior available for comparison Total points / TI-RADS Category: 6 TI-RADS 4 ACR Recommendation: TI-RADS 4 NODULE FNA is recommended. NODULE 3 Location: Right lower pole Size: 1.9x 1.5x 2 cm Characteristics: Composition: Solid or almost completely solid, 2 points Echogenicity: Isoechoic, 1 point Shape: Eargb-hopl-tcsh, 0 points Margin: Smooth, 0 points Echogenic foci (Add points for all that apply): Punctate echogenic foci, 3 points Internal vascularity: present Interval growth:No prior available for comparison Total points / TI-RADS Category: 6 TI-RADS 4 ACR Recommendation: TI-RADS 4 NODULE FNA is recommended. NODULE 4 Location: Left lower pole Size: 1.5x 0.8x 1.2 cm Characteristics: Composition: Solid or almost completely solid, 2 points Echogenicity: Hypoechoic, 2 points Shape: Acvrw-gxed-pygf, 0 points Margin: Smooth, 0 points Echogenic foci (Add points for all that apply): Punctate echogenic foci, 3 points Internal vascularity: present Interval growth:No prior available for comparison Total points / TI-RADS Category: 7 TI-RADS 5 ACR Recommendation: TI-RADS 5 NODULE, FNA is advised. IMPRESSION: THYROID NODULES PRESENT. ACR TI-RADS LEVEL AND RECOMMENDATIONS DETAILED IN BODY OF REPORT. Mixing Machine Operator: SHELDON Transcribe Date/Time: Dec 12 2018 1:25P Dictated by : MOISÉS HEARD MD This examination was interpreted and the report reviewed and electronically signed by: MOISÉS HEARD MD on Dec 12 2018 1:39PM EST [id number] [facility] Vital Signs Date Time Vital Sign Value Performing Clinician Facility 01-29-2024 13:40-0400 Body height 165.1 cm [facility] 01-29-2024 13:40-0400 Body mass index (BMI) [Ratio] 21.6 kg/m2 [facility] 01-29-2024 13:40-0400 Body weight 58.96 kg [facility] 09-25-2023 10:05-0400 Body height 165.1 cm [facility] 09-25-2023 10:05-0400 Body mass index (BMI) [Ratio] 23.3 kg/m2 [facility] 09-25-2023 10:05-0400 Body weight 63.61 kg [facility] 09-25-2023 10:05-0400 Diastolic blood pressure 78 mm[Hg] [facility] 09-25-2023 10:05-0400 Heart rate 101 /min [facility] 09-25-2023 10:05-0400 Respiratory rate 12 /min [facility] 09-25-2023 10:05-0400 Systolic blood pressure 142 mm[Hg] [facility] 09-27-2022 11:00-0400 Body height 165.1 cm Zan Ball Other [facility] [employer] Other 09-27-2022 11:00-0400 Body mass index (BMI) [Ratio] 23.49 kg/m2 Zan Ball Other [facility] [employer] Other 09-27-2022 11:00-0400 Body weight 64.05 kg Zan Ball Other [facility] [employer] Other 09-27-2022 11:00-0400 Diastolic blood pressure 82 mm[Hg] Azn Ball Other [facility] [employer] Other 09-27-2022 11:00-0400 Respiratory rate 12 /min Zan Sharma Other [employer] Other 09-27-2022 11:00-0400 Systolic blood pressure 145 mm[Hg] Zan Sharma Other [employer] Other Encounters Encounter Date Encounter Type Care Provider Facility Start: 01-29-2024 End: 01-29-2024 ambulatory [facility] Work Phone: Start: 01-29-2024 End: 01-29-2024 Patient encounter procedure [facility] Gastroenterology Work Phone: Start: 09-25-2023 End: 09-25-2023 ambulatory [facility] Work Phone: Start: 09-25-2023 End: 09-25-2023 Patient encounter procedure [facility] Work Phone: Start: 08-09-2023 Non-patient / Non-visit [facility] Phys[facility] [employer] Work Phone: Start: 01-04-2023 End: 01-04-2023 ambulatory Zan Sharma Other [employer] Other Start: 01-04-2023 Telephone encounter Zan WALLER G [facility] Start: 09-27-2022 Patient encounter procedure Zan Sharma [facility] Start: 09-27-2022 End: 09-28-[address] ZAN SHARMA [facility] [employer] Other Start: 08-16-2022 End: 08-16-2022 ambulatory Zan Sharma Other [employer] Other Start: 08-16-2022 Telephone encounter Zan WALLER G [facility] Start: 01-30-2022 ambulatory Iain Henry MD Work Phone: Endocrinology Comment on above: F/U hyperthyroidism Start: 01-21-2022 End: 01-21-[address] ZAN SHARMA Facility:[facility]1 Start: 01-19-2022 End: 01-19-[address] ZAN SHARMA Facility:[facility] Start: 01-18-2022 End: 01-19-[address] ZAN SHARMA Facility:[facility] Start: 11-09-2021 ambulatory Iain Henry MD Work Phone: Endocrinology Comment on above: [place] Start: 11-08-2021 ambulatory Maryjane Ahuja RDMS Radiology Comment on above: Radiology [place] Start: 11-08-2021 Patient encounter procedure Maryjane Ahuja RDMS [facility] Start: 11-08-2021 End: 11-08-2021 Subsequent hospital visit by physician [facility] Comment on above: Multiple thyroid nod ules [E04.2] Start: 09-26-2021 Adult health examination Daquan Sharma Other [employer] Other Start: 01-22-2020 End: 01-22-2020 Subsequent hospital visit by physician [facility] Comment on above: Toxic multinodular g oiter [E05.20] Procedures Date Procedure Procedure Detail Performing Clinician Start: 11-08-2021 Us soft tissue head & neck real time imge carroll Henry MD Work Phone: Start: 01-22-2020 Us soft tissue head & neck real time imcristian Henry MD Work Phone: Start: 12-11-2018 Screening for malign ant neoplasm of colon Zan Sharma Other Start: 11-19-2018 H/O: surgery History of greg dder suspension procedure Maryjane Ahuja RDMS Depression screening Charles Sharma Other Plan of Treatment Date Care Activity Detail Author Start: 01-19-2023 Influenza vaccination INFLUENZA (#1) [facility] Start: 05-21-2022 ADVANCE DIRECTIVE DISCUSSION ADVANCE DIRECTIVE DISCUSSION [facility] Start: 05-21-2022 DEPRESSION ASSESSMENT DEPRESSION ASS ESSMENT [facility] Start: 02-01-2022 End: 04-03-2022 Thyrotropin [Units/volume] in Serum or Plasma TSH BLD Lab Routine Toxic multinodular goiter Expected: 02/01/2022, Expires: 04/03/2022 [facility] Work Phone: Comment on above: Expected: 02/01/2022 , Expires: 04/03/2022 Start: 02-01-2022 End: 04-03-2022 Thyroxine (T4) free [Mass/volume] in Serum or Plasma T4 FREE/FREE THYROX Lab Routine Toxic multinodular goiter Expected: 02/01/2022, Expires: 04/03/2022 [facility] Work Phone: Comment on above: Expected: 02/01/2022 , Expires: 04/03/2022 Start: 02-01-2022 End: 04-03-2022 Triiodothyronine (T3) Free [Mass/volume] in Serum or Plasma T3 FREE BLD Lab Routine Toxic multinodular goiter Expected: 02/01/2022, Expires: 04/03/2022 [facility] Work Phone: Comment on above: Expected: 02/01/2022 , Expires: 04/03/2022 Start: 01-19-2022 Influenza vaccination [facility] Start: 05-21-2021 ADVANCE DIRECTIVE DISCUSSION ADVANCE DIRECTIVE DISCUSSION [facility] Start: 2013 BONE DENSITY BONE DENSITY [facility] Start: 2013 PNEUMOCOCCAL: 65+ (1 - PCV) PNEUMOCOCCAL: 65+ (1 - PCV) [facility] Start: 03-29-2013 DIABETES SCREEN DIABETES SCREEN [facility] Start: 1998 SHINGRIX VACCINE (1 of 2) PEÑA GRIX VACCINE (1 of 2) [facility] Start: 1993 COLOGUARD (FIT-DNA) COLOGUARD (FIT-D NA) [facility] Start: 1993 Colonoscopy COLONOSCOPY [facility] Start: 1993 COLORECTAL CANCER SCREENING COLORECTAL CANCER SCREENING [facility] Start: [address] COLONOGRAPHY [facility] Start: 1993 FECAL OCCULT BLOOD FECAL OCCULT BLOO D [facility] Start: 1993 LIPID SCREEN LIPID SCREEN [facility] Start: 1993 SIGMOIDOSCOPY SIGMOIDOSCOPY [facility] Start: 1988 Mammography MAMMOGRAM [facility] Start: 1967 Urine microalbumin profile DTAP,TDAP ,TD (1 - Tdap) [facility] Start: 1966 ANNUAL PCP TEAM AUTOMOTIVE DISMANTLER LUCHO DISEASE VISIT ANNUAL PCP TEAM CHRONIC DISEASE VISIT [facility] Start: 1966 BP CONTROLLED (<130/80) BP CONTROLLE D (<130/80) [facility] Start: 1966 HEPATITIS C SCREENING HEPATITIS C SC REENING [facility] Start: 1960 Adult depression scr eening assessment DEPRESSION SCREENING [facility] Start: 1953 COVID-19 VACCINE (#1) COVID-19 VACCI NE (#1) [facility] Start: 1948 COVID-19 VACCINE (#1) COVID-19 VACCI NE (#1) [facility] Comprehensive metabo lic 2000 panel - Serum or Plasma [facility] Immunizations Immunization Date Immunization Notes Care Provider Fa cility 07-28-2020 COVID-19 mRNA-1273 (Moderna) [facility] 06-30-2020 COVID-19 mRNA-1273 (Moderna) [facility] 02-18-2020 influenza virus vaccine, split virus (incl. purified surface antigen) Zan Sharma Other [employer] Other 02-18-2020 influenza virus vaccine, unspecified formulation [facility] Payers Date Payer Category Payer Medicare MEDICARE MEDICAR E A AND B [id number] 2013-Present [phone] [place] [address] Medicare [id number] 2013 Medicare MEDICARE MEDICAR E A AND B [id number] 2013-Present [phone] [place] [address] Medicare [id number] 2013 Private Health Insurance RADU POP MEDICARE SUPPLEMENT [id number] 2013-Present [phone] [address] [place] [address] Indemnity [id number] 2013 Private Health Insurance RADU POP MEDICARE SUPPLEMENT [id number] 2013-Present [phone] [address] [place] [address] Indemnity [id number] 1959 Medicare [id number] 1959 Medicare [id number] 1948 Unknown [id number] 1948 Unknown [id number] 1948 Unknown [id number] 1948 Unknown [id number] Self-pay Self Pay [id number] Social History Date Type Detail Facility Start: 11-19-2018 Tobacco smoking status NHIS Ex-smoker [facility] History of tobacco use Cigarette Smoker [facility] Start: 12-02-2018 Alcohol intake Current drinker of alcohol (finding) [facility] Start: 12-02-2018 End: 04-25-2020 Alcohol intake [facility] Start: 11-19-2018 Tobacco Comment Quit: 2008; recently started again (but not for 10 days) [facility] Start: 1950 Sex Assigned At Female [facility] Start: 11-29-2019 End: 11-04-2021 Exposure to SARS-CoV-2 (event) Not sure [facility] Start: 02-02-2021 History of tobacco use Current smoker [facility] Work Phone: Start: 11-19-2018 Tobacco use and exposure Smokeless tobacco non-user [facility] Work Phone: Start: 12-02-2018 End: 04-25-2020 Sex Assigned At [employer] Other National Score (1-10 0), lower number is lower risk Not on file [facility] Start: 02-19-2020 Gender identity Identifies as female gender (finding) [facility] Start: 02-19-2020 Sexual orientation Heterosexual (finding) [facility] Medical Equipment Procedure Code Equipment Code Equipment Origin al Text Equipment Identifier Dates Mesh Gynemesh Ps [id number] - [id number] Start: 03-28-2010 Clinical Notes 11-08-2021 to 09-27-2022 Note Date & Type Note Facility 09-27-2022 Evaluation note Encounter Date Diagnosis Assessment Notes September, Primary hypertension (ICD-10 - I10) This patient is instructed to consume a healthy, low-fat, low-salt diet. They are also encouraged to continue exercise to achieve/maintain a normal BMI. September, MARY (generalized anxiety disorder) (ICD-10 - F41.1) Healthy diet, exercise September, Thyroid nodule (ICD-10 - E04.1) Continue qoy thyroid US Monitor for symptoms of thyrotoxicosis Yearly TSH, T4, T3 September, Menopause (ICD-10 - Z78.0) Healthy diet, weight bearing exercises, Ca/Vit D supplements September, Medicare annual wellness visit, subsequent (ICD-10 - Z00.00) Personalized health advice was given to the beneficiary including a written plan for screenings discussed and provided. Advanced care planning reviewed and/or information given as requested. Additional counseling was provided hehere today in regards to, [ ]. The above visit was performed by [ ], under direct supervision of [ ]. Document reviewed and amended by provider signed below. Healthy diet and exercise. Reviewed age-appropriate preventive testing recommended. September, Mammogram declined (ICD-10 - Z53.20) Discussed mammogram, which she declined. Encouraged to continue w/ SBE monthly and contact office w/ any changes [employer] Other 09-14-2022 Miscellaneous Notes* Telephone Encounter - Lena Deutsch APRN.CNP - 02/01/2022 9:26 AM EDT Lab orders signed on behalf of Dr. Henry: 1. 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 She has been having gastrointestinal issues and would like to know if it is related to her hyperthyroidism. Please advise. Thank you, Zehra Ley MA [facility] Miscellaneous Notes* Telephone Encounter - aRdha Johnson Ma - 11/09/2021 10:37 AM EDT AUTUMN: 02/23/2020 No follow up scheduled Patient had an ultrasound done and would like you to review it. Please advise. Radha Johnson Ma documented in this encounterTr[facility]22 NoteHNO ID: [id number] Author: Maryjane Ahuja RDMS Service: ? Author Type: Metal Model Maker Type: Progress Notes Filed: 11/08/2021 1:16 PM Note Text: Radiology Service Progress Note PATIENT NAME: Christine Landis DATE OF SERVICE: November 08, 2021 TIME: 12:53 PM PATIENT IDENTITY VERIFICATION COMPLETED USING TWO (2) IDENTIFIERS: Name and Date of confirmed by patient verbally. FALL SCREENING: Has the patient had 2 falls in the last year or 1 fall with injury or currently using an Ambulatory Assistive Device (Walker, Cane, Wheelchair, Crutches, etc.)? No PATIENT GENDER DATA: Female. status: : No status: N/A PATIENT RELEVANT IMPLANT DATA REVIEWED: Not Applicable RADIOLOGY DEPARTMENT: Ultrasound PERIPHERAL IV DATA: Not applicable SIGNED BY: Maryjane Ahuja RDMS November 08, 2021 12:53 [facility]06-21-2022 History of Present illness Narrative* Maryjane Ahuaj RDMS - 11/08/2021 12:53 PM EDT Radiology Service Progress Note PATIENT NAME: Christine Landis DATE OF SERVICE: November 08, 2021 TIME: 12:53 PM PATIENT IDENTITY VERIFICATION COMPLETED USING TWO (2) IDENTIFIERS: Name and Date of confirmedby patient verbally. FALL SCREENING: Has the patient had 2 falls in the last year or 1 fall with injury or currently using an Ambulatory Assistive Device (Walker, Cane, Wheelchair, Crutches, etc.)? No PATIENT GENDER DATA: Female. status: : No status: N/A PATIENT RELEVANT IMPLANT DATA REVIEWED: Not Applicable RADIOLOGY DEPARTMENT: Ultrasound PERIPHERAL IV DATA: Not applicable SIGNED BY: Maryjane Ahuja RDMS November 08, 2021 12:53 PM [facility]* Diagnosis Toxic multinodular goiter- Primary Toxic multinodular goiter without mention of thyrotoxic crisis or storm documented in this encounter [facility] noteNo [employer] Other Evaluation note* Diagnosis Multiple thyroid nodules Nontoxic multinodular goiter documented in this encounter [facility] note* Diagnosis Toxic multinodular goiter Toxic multinodular goiter without mention of thyrotoxic crisis or storm Multiple thyroid nodules Nontoxic multinodular goiter documented in this encounter [facility] note* Diagnosis Onset Date Resolution Status MARY (generalized anxiety disorder) acute Hypertension acute IBS (irritable bowel syndrome) acute Primary insomnia acute Screening mammography declined acute Subclinical hyperthyroidism acute Thyroid nodule acute Medicare annual wellness visit, subsequent noneactive [facility] Work Phone: Evaluation noteNo assessment information available [facility] Work Phone: History general Narrative - Reported* Type Description Date Surgical History bladder suspension, unspecified Surgical History left hip replacement Surgical History pelvis suspension Surgical History ankle fracture-right Hospitalization History see above [employer] Other [employer] general Narrative - Reported* Type Description Date Medical History Primary hypertension Medical History MARY (generalized anxiety disorde r) Medical History Diarrhea of presumed infectious origin Medical History High risk medication use Medical History Multinodular goiter Surgical History bladder suspension, unspecified Surgical History left hip replacement Surgical History pelvis suspension Surgical History ankle fracture-right Surgical History Colonoscopy, repeat 5 years 01/20 021 Hospitalization History see above [employer] Other Reason for referral (narrative)* Diagnostic Procedure Only (Routine) - Closed Specialty Diagnoses / Procedures Referred By Contac t Referred To Contact US IMAGING Diagnoses Multiple thyroid nodules Procedures US THYROID/PARATHYROID US SOFT TISSUE HEAD & NECK REAL TIME IMGE Iain San MD [address] [place] [address] Us Imaging Referral ID Status Reason Start Date Expiration Date V isits Requested Visits Authorized [id number] Closed Auto-Generate d Referral 11/02/2021 12/02/2022 1 1 [facility] for visit Narrative* Diagnostic Procedure Only (Routine) - Closed Specialty Diagnoses / Procedures Referred By Contac Referred To Contact US IMAGING Diagnoses Multiple thyroid nodules Procedures US THYROID/PARATHYROID US SOFT TISSUE HEAD & NECK REAL TIME IMGE Iain San MD [address] [place] [address] Us Imaging Referral ID Status Reason Start Date Expiration Date V isits Requested Visits Authorized [id number] Closed Auto-Generate d Referral 11/02/2021 12/02/2022 1 1 [facility] Summary Purpose Family History Relationship Condition Age at Onset Recorded Date/T roxane family member Unknown Not Specified Malignant neoplasm Unknown Hypertension Unknown Malignant neoplasm of colon Unknown Relationship Condition Age at Onset Recorded Date/T roxane family member Unknown mother Malignant neoplasm Unknown Hypertension Unknown Malignant neoplasm of colon Unknown Advance Directives Advance Directive Response Recorded Date/ Time Advance Directives No December 27, 2 019 10:27am Chief Complaint and Reason for Visit Chief Complaint Amb Documentation Medicare Wellness Reason for Visit MARY (generalized anx iety disorder) Hypertension IBS (irritable bowel syndrome) Primary insomnia Screening mammography declined Subclinical hyperthyroidism Thyroid nodule Medicare annual wellness visit, subsequent Chief Complaint urgency bowel moveme nts/diarrhea Additional Source Comments INFORMATION SOURCE (unrecogn ized section and content) DATE CREATED AUTHOR 12/13/2018 [facility] DATE CREATED AUTHOR AUTHOR'S ORGANIZ ATION 11/15/2021 [facility] DATE CREATED AUTHOR AUTHOR'S ORGANIZ ATION 10/01/2022 [facility] Source Comments (unrecognize d section and content) In the event this informatio n is protected by the Federal Confidentiality of Alcohol and Drug Abuse Patient Records regulations: The Federal rules restrict any use of the information to criminally investigate or prosecute any alcohol or drug abuse patient.[facility] the event this information is protected by the Federal Confidentiality of Alcohol and Drug Abuse Patient Records regulations: The Federal rules restrict any use of the information to criminally investigate or prosecute any alcohol or drug abuse patient.[facility] the event this information is protected by the Federal Confidentiality of Alcohol and Drug Abuse Patient Records regulations: The Federal rules restrict any use of the information to criminally investigate or prosecute any alcohol or drug abuse patient.[facility] the event this information is protected by the Federal Confidentiality of Alcohol and Drug Abuse Patient Records regulations: The Federal rules restrict any use of the information to criminally investigate or prosecute any alcohol or drug abuse patient.[facility] the event this information is protected by the Federal Confidentiality of Alcohol and Drug Abuse Patient Records regulations: The Federal rules restrict any use of the information to criminally investigate or prosecute any alcohol or drug abuse patient.[facility] Reason for Visit (unrecogniz ed section and content) Reason Comments Radiology US Care Teams (unrecognized sec tion and content) Team Status: Active Member Role Status Dates Zan Sharma DO Primary Care Provider Active Team Status: Inactive Member Role Status Dates Zan Sharma DO Primary Care Provider Active Start: January 29, 2024 End: January 29, 2024 Venecia Donis DO Attending Provider Active St art: January 29, 2024 End: January 29, 2024 Aerodynamic Consultant Relationship Specialty Start Date End Date Zna Sharma DO PCP - General 8/20/10 Aerodynamic Consultant Relationship Specialty Start Date End Date Zan Sharma DO PCP - General 01/07/10 Aerodynamic Consultant Relationship Specialty Start Date End Date Zan Sharma DO PCP - General 01/07/10 Aerodynamic Consultant Relationship Specialty Start Date End Date Zan Sharma DO PCP - General 01/07/10 Aerodynamic Consultant Relationship Specialty Start Date End Date Zan Sharma DO PCP General 01/07/10 Team Status: Active Member Role Status Dates Zan Sharma DO Primary Care Provider Active Team Status: Active Member Role Status Dates Zan Sharma DO Primary Care Provider Active Start: August 09, 2023 WILLIAM Saldaña Attending Provider Active Start : August 09, 2023 Team Status: Inactive Member Role Status Dates Zan Sharma DO Primary Care Provide r, Attending Provider Active Start: September 25, 2023 End: September 25, 2023 Team Status: Inactive Member Role Status Dates Zan Sharma DO Primary Care Provider Active Start: January 29, 2024 End: January 29, 2024 Venecia Donis DO Attending Provider Active St art: January 29, 2024 End: January 29, 2024 Goals (unrecognized section and content) Goals may be documented in a n alternate section FOR RECORDS PERTAINING TO PATIENTS WHO ARE OR HAVE BEEN ENROLLED IN A CHEMICAL DEPENDENCY/SUBSTANCEABUSE PROGRAM, SOME INFORMATION MAY BE OMITTED. This clinical summary was aggregated from multiple sources. Caution should be exercised in using it in the provision of clinical care. This summary normalizes information from multiple sources, and as a consequence, information in this document may materially change the coding, format and clinical context of patient data. In addition, data may be omitted in some cases. CLINICAL DECISIONS SHOULD BE BASED ON THE PRIMARY CLINICAL RECORDS. [facility] [employer] [facility]. provides no warranty or guarantee of the accuracy or completeness of information in this document.
[2024-09-30 11:40] LABS: Basophils Percent Auto 0.2 % (0.2-2.0); Eosinophils Absolute Auto 0.1 10^3/uL (0.0-0.7); Eosinophils Percent Auto 0.6 % (0.9-7.0); Hemoglobin 15.2 g/dL (12.0-16.0); Immature Granulocytes Abs Auto 0.03 10^3/uL (0.00-0.03); Immature Granulocytes Pct Auto 0.3 % (0.0-0.5); Lymphocytes Absolute Auto 2.7 10^3/uL (1.2-3.8); Mean Corpuscular HGB Conc 33.8 g/dL (29.9-35.2); Mean Corpuscular Hemoglobin 30.9 pg (26.7-34.0); Mean Corpuscular Volume 91.5 fL (81.0-99.0); Mean Platelet Volume 10.2 fL (9.5-13.5); Monocytes Absolute Auto 0.6 10^3/uL (0.3-0.8); Neutrophils Absolute Auto 5.2 10^3/uL (1.4-6.5); Neutrophils Percent Auto 60.9 % (43.0-75.0); Platelet Count 258 10^3/uL (150-450); Red Blood Count 4.92 10^6/uL (4.20-5.40); Red Cell Distribution Width 12.7 % (11.0-15.0); White Blood Count 8.6 10^3/uL (4.0-11.0)
[2024-09-30 12:16] LABS: Alanine Aminotransferase 25 U/L (14-59); Albumin Globulin Ratio 1.3; Albumin Level 4.1 g/dL (3.4-5.0); Alkaline Phosphatase 78 U/L (46-116); Anion Gap 11.8; Aspartate Amino Transferase 25 U/L (15-37); BUN Creatinine Ratio 22.4; Bilirubin Total 0.5 mg/dL (0.2-1.0); Calcium 9.5 mg/dL (8.5-10.1); Carbon Dioxide 28.6 mmol/L (21.0-32.0); Chloride 104 mmol/L (98-107); Estimated GFR (African America >60 (>=60 mL/min/1.73m^2); Estimated GFR (Non-African Ame >60 (>=60 mL/min/1.73m^2); Globulin 3.1 g/dL; Glucose 94 mg/dL (74-106); Potassium 4.4 mmol/L (3.5-5.1); Sodium 140 mmol/L (136-145); Thyroid Stimulating Hormone 0.253 uIU/mL (0.358-3.740); Total Protein 7.2 g/dL (6.4-8.2)
[2024-09-30 12:22] LABS: Free T4 1.13 ng/dL (0.76-1.46)
[2024-10-01 08:09] LABS: Triiodothyronine (T3) 131 ng/dL (71-180)
== END 2024-09-30 11:05 | disposition home or self-care (01) ==
LOC: LAB 11:06
PROVIDERS: PCP Internal Medicine; Visit Provider Internal Medicine
DX: E04.1 Nontoxic single thyroid nodule (principal); E05.90 Thyrotoxicosis, unspecified without thyrotoxic crisis or storm; I10 Essential (primary) hypertension
CPT/HCPCS: 36415; 80053; 84439; 84443; 84480; 85025